=== PATIENT | male | born 1955 | race Caucasian/White ===

== ENCOUNTER 2021-01-15 00:39 | Outpatient (CLI) | payer MEDICAID, SELFPAY ==
--- NOTE | 2021-01-15 08:01 | DI.CT_ITS ---
Exam(s) CT ABDOMEN PELVIS W EXAM: CT ABDOMEN PELVIS W CLINICAL HISTORY: Pelvic pain,r10.2. TECHNIQUE: Imaging Protocol: Axial computed tomography images with coronal and sagittal reformatted images were created and reviewed CONTRAST MATERIAL: Intravenous: Omnipaque 100cc Oral: Yes COMPARISON: No exams were available for comparison FINDINGS: VISUALIZED LUNG BASES: No nodules nor pleural effusions evident. ABDOMEN: There is no ascites. LIVER: There are multiple small hypodensities in the right hepatic lobe, the largest of which appears to be a subcapsular cyst in the medial right hepatic lobe measuring approximately 1.7 x 1.3 cm. Sma ller findings have the appearance some small cysts although 1 of these which measures approximately 1 cm is not a simple cyst and may represent a hemangioma but difficult to assess accurately on this ty pe of similar run study. There is no dilatation of intrahepatic ducts. GALLBLADDER/BILIARY: No obvious gallbladder pathology. CBD is not dilated. PANCREAS: No evidence of pancreatic mass nor dilatation of the pancreatic duct. SPLEEN: Spleen is not enlarged. No obvious intrasplenic lesions. Splenic and portal veins are paten t. ADRENALS: There are no significant adrenal masses. KIDNEYS:There is a 1.5 x 1.4 cm benign cyst in the anterior cortex of the left kidney. No other foca l renal findings. No calculi. No hydronephrosis. No hydroureter. No obvious abnormality in the ur inary bladder. . ABDOMINAL AORTA: Abdominal aorta is not enlarged. LYMPH NODES:There are multiple slightly enlarged lymph nodes in the mesentery and there is also faint mesenteric streaking. There is no splenomegaly evident. No intrapelvic nor inguinal adenopathy kaylee dent. ABDOMINAL WALL: No evidence of significant anterior abdominal wall hernia. GI: There is no evidence of bowel obstruction, free air, nor abscess. PELVIS: GI: No evidence of appendicitis.Very redundant sigmoid. No obvious diverticulitis. LYMPH NODES: There is no intrapelvic nor inguinal adenopathy. REPRODUCTIVE: Mild enlargement of the prostate URINARY BLADDER: No calculi nor obvious masses evident OSSEOUS: No significant osseous lesions. Mild degenerative listhesis of L4 upon L5. IMPRESSION: 1. Multiple hypodensities are right hepatic lobe measuring up to 17 x 13 millimeters, most of which a ppear to be benign cysts. One of these is too dense to be a cyst and is probably a small hemangioma. Difficult to assess accurately on this type of study. 2. There are multiple small mesenteric lymph nodes seen. Ranging up to approximately 12 millimeters size. Also mild haziness in the mesentery. No splenomegaly. 3. Extremely redundant sigmoid which reaches the right upper quadrant of the abdomen. However, there is no evidence of significant sigmoid diverticular disease. RADIATION DOSE DELIVERED: 935.14mGy.cm Total DLP DATA REPOSITORY: All CT scans at this facility are submitted to the National Radiology Data Registry (NRDR) Dose Index Registry (DIR) with the [employer] (A[employer]). RADIATION OPTIMIZATION: All CT scans at this facility use at least one of these dose optimization te chniques: automated exposure control; mA and/or kV adjustment per patient size (includes targeted exa ms where dose is matched to clinical indication); or iterative reconstruction.
[2021-01-15] MEDS: Breeza Beverage 473 ML BTL PO ×2 (09:50→09:51)
[2021-01-15 10:13] LABS: ALT 25 U/L (16-63); Albumin 3.9 g/dL (3.4-5.0); BUN 12 mg/dL (7-18); Calcium 9.1 mg/dL (8.5-10.1); Chloride 106 mmol/L (98-107); Sodium 143 mmol/L (136-145)
[2021-01-15 10:22] LABS: AST 13 U/L (15-37); Alkaline Phosphatase 62 U/L (46-116); Bilirubin, Total 0.5 mg/dL (0.2-1.0); CREATININE 1.1 mg/dL (0.70-1.30); Glucose 104 mg/dL (74-106); Potassium 3.9 mmol/L (3.5-5.1); Total Protein 6.7 g/dL (6.4-8.2)
[2021-01-15] MEDS: Omnipaque 350 MG/ML 100 ML BTL IV (10:51)
[2021-01-15] MEDS: Normal Saline - Diluent 50 ML VIAL IV (10:52)
== END 2021-01-15 00:59 ==
PROVIDERS: PCP Nurse Practitioner Family; Visit Provider Nurse Practitioner Family
DX: K76.89 Other specified diseases of liver; I89.8 Other specified noninfective disorders of lymphatic vessels and lymph nodes; Q43.8 Other specified congenital malformations of intestine; I10 Essential (primary) hypertension
CPT/HCPCS: 80053; 74177; J3490

== ENCOUNTER 2021-01-15 11:19 | Emergency (ER) | payer MEDICAID, SELFPAY ==
[2021-01-15] VITALS (9 sets, daily range): BP systolic 143–159; BP diastolic 74–79; PULSE 60–70; RESP 18; TEMP 36.4–37.1; O2SAT 96–100
--- NOTE | 2021-01-15 11:31 | W.ED.GENAD ---
Discharge Plan Disposition Patient Disposition: HOME Condition: Improving Discharge Details Clinical Impression: Allergic reaction to contrast dye Primary Care Provider: Spencer Thomas ED Provider: Eliezer Mayfield Home Meds and New Rx's Prescriptions: Continued methylphenidate HCl 10 mg tablet extended release 10 mg PO QAM RF: 0 omeprazole 20 mg capsule,delayed release(DR/EC) 20 mg PO DAILY RF: 0 sildenafil [Viagra] 100 mg tablet 100 mg PO DAILY PRNRF: 0 ketoconazole 2 % shampoo 1 applic topical DAILY RF: 0 urea 40 % cream 1 applic topical BID RF: 0 Discharge Instructions Instructions: General Allergic Reaction (ED) Additional Instructions: May you may use Benadryl 25 to 50 mg every 4-6 hours if needed for persistent itchiness. Return or see nearest health care provider if you develop difficulty breathing, trouble swallowing, or any other acute concerns. You should consider yourself allergic to IV contrast dye. You may be able to have further contrast enhanced studies with premedication treatments. Medical Decision Making 65-year-old male who underwent contrast infused CT imaging for outpatient groin discomfort. Following the IV contrast she developed urticaria on his chest and abdomen. No difficulty breathing, no change to voice or drooling. Due to the acute reaction, patient was brought to the ER, IV access established, given antihistamines and parenteral steroids. Patient observed, improved. I do not feel that this is a severe allergic reaction, and he may likely be able to have further contrast dye with premedication. Do not feel he needs further steroids. He is stable for outpatient management at this time HPI General Mode of arrival: ambulatory. Date/Time Provider Initiated Documentation: 01/15/21 11:24. Limitations to Documentation: no limitations. Information obtained by: patient. History of Present Illness 65 year old M presents to the emergency department with the chief complaint of Allergic reaction to IV dye, described as moderate, Quality is described as dull and constant, and is localized to the chest and abdomen. Patient reports no radiation. Patient started experiencing this minute(s) and it has been constant. No relieving factors improve symptom(s), No exacerbating factors reported . Patient notes denies chest pain, cough, shortness of breath and syncope. Patient did receive the following treatments prior to arrival, none Related Data Home Medications Medication Instructions Recorded Confirmed ketoconazole 2 % shampoo 1 applic TOPICAL DAILY ml 11/15/20 01/15/21 methylphenidate HCl 10 mg 10 mg PO QAM 11/15/20 01/15/21 tablet,extended release omeprazole 20 mg capsule,delayed 20 mg PO DAILY 11/15/20 01/15/21 release sildenafil 100 mg tablet 100 mg PO DAILY PRN 11/15/20 01/08/21 urea 40 % topical cream 1 applic TOPICAL BID 11/15/20 01/15/21 Allergies Allergy/AdvReac Type Severity Reaction Status Date / Time No Known Allergies Allergy Verified 01/08/21 14:05 iv contrast AdvReac Intermediate Hives Uncoded 01/15/21 11:51 Review of Systems Narrative: 6 systems reviewed and otherwise negative. No difficulty with voice or swallowing. No shortness of breath. [facility] Medical History Actinic keratosis ADD (attention deficit disorder) Anxiety Benign prostatic hyperplasia with urinary obstruction Cervical radiculopathy Colon polyp Follicular acne of scalp GERD (gastroesophageal reflux disease) Hyperkeratosis Hypertension Lipoma Tinea pedis Family History Mother No problems noted. Father , 60's late Heart disease Sister Hypertension Sister Hyperlipidemia Brother Hypertension Maternal Grandfather , 70 No problems noted. Paternal Grandfather , 40's No problems noted. Maternal Grandmother , 70's No problems noted. Paternal Grandmother , 20's No problems noted. Social History (Updated 11/14/20 @ 09:15 by Joana Huddleston) Smoking/Tobacco Use Status: Never Second Hand Exposure: Yes Smoking risk assessment performed?: Yes Alcohol Intake: current Alcohol Intake frequency: a few times a week Alcohol type: beer, wine and hard liquor Drug use: Never Substance use type: does not use Caregiver/Support person: No Household members: other Details: mother Pets and animals: No Current gender identity: male What is your relationship status?: never How often do you talk on the phone with friends or family?: three or more times per week How often do you get together with friends or relatives?: three or more times per week Do you belong to any clubs or organized social groups?: no Panel score (0-1 are the most socially isolated patients): 1 What type of physical activity do you participate in: walking, weight lifting and other Details: hiking Duration: 45-60 minutes/day Frequency: 3-4 times per week Cayla/Denominational: No preference Special cayla needs: No Seatbelt use: always Helmet use: No Drive intox or ride w/intox train driver: No Do you feel safe at home: Yes Do you feel safe in your relationship?: Yes Exam Narrative Exam Narrative: GEN: awake, alert, oriented 3. Pleasant, well groomed, interactive. HEAD: Normocephalic, atraumatic ENT: Mucous membranes moist, oropharynx unremarkable, External ear exam unremarkable EYES: PERRL, EOMI NECK: Full ROM, no GONSALO, no menigismus CHEST/RESP: Nontender, clear to auscultation bilateral, no wheeze/rhonchi/rales CARDIOVASCULAR: RRR, no murmur, rub matt. 2+ Rad pulse bilateral ABDOMEN: Soft, nontender, no mass. +Bowel sounds EXT: Full ROM, no edema Skin: Raised, blanching, erythematous urticaria on chest and abdomen. Neuro: Grossly normal neurologic exam, conversant, interactive. Psych: Speech fluent, thoughts congruent, affect normal
[2021-01-15] MEDS: Loratidine 10 MG TAB PO (11:34)
[2021-01-15] MEDS: methylPREDNISolone SUCC 125 MG VIAL IVP (11:34)
[2021-01-15] MEDS: diphenhydrAMINE 50 MG/ML VIAL 25 MG IVP (11:35)
[2021-01-15] MEDS: Normal Saline 1,000 ML 1000 ML IV (11:47)
== END 2021-01-15 14:09 | disposition home or self-care (01) ==
LOC: ER 12:42
PROVIDERS: Emergency Provider Emergency Medicine; PCP Nurse Practitioner Family
DX: L50.9 Urticaria, unspecified (principal); T50.8X5A Adverse effect of diagnostic agents, initial encounter
CPT/HCPCS: 96361; 96374; 96375; 99284; J1200; J2930

== ENCOUNTER 2022-04-22 10:45 | Outpatient (REF) | payer MEDICAID, SELFPAY ==
[2022-04-22 19:06] LABS: Anion Gap 5.6 mmol/L (3-11); BUN 18 mg/dL (7-18); CO2 29.4 mmol/L (21.0-32.0); CREATININE 1.3 mg/dL (0.70-1.30); Calculated LDL 107 mg/dL (<100); Chloride 105 mmol/L (98-107); Cholesterol 178 mg/dL (<200); Estimated GFR 60.96 (mL/min/1.73m2); Glucose 91 mg/dL (74-106); HDL Cholesterol 59 mg/dL (40-60); Potassium 4.1 mmol/L (3.5-5.1); Sodium 140 mmol/L (136-145); Triglyceride 62 mg/dL (<150)
[2022-04-26 10:04] LABS: Hepatitis C Ab w Rflx HCV PCR Negative (Negative)
== END 2022-04-22 10:46 | disposition home or self-care (01) ==
LOC: NCHCN 10:45
PROVIDERS: Visit Provider Nurse Practitioner Family
DX: Z13.220 Encounter for screening for lipoid disorders (principal); Z11.59 Encounter for screening for other viral diseases
CPT/HCPCS: 80048; 80061; 86803

== ENCOUNTER 2022-08-25 18:25 | Outpatient (REF) | payer MEDICARE, MEDICAID, SELFPAY ==
[2022-08-25 18:48] LABS: TSH 0.59 uIU/mL (0.36-3.74)
== END 2022-08-25 18:26 | disposition home or self-care (01) ==
LOC: NCHCN 18:25
PROVIDERS: Visit Provider Nurse Practitioner Family
DX: K59.00 Constipation, unspecified (principal)
CPT/HCPCS: 84443

== ENCOUNTER 2022-09-07 09:59 | Outpatient (REF) | payer MEDICARE, MEDICAID, SELFPAY ==
[2022-09-07 19:26] LABS: Anion Gap 7.5 mmol/L (3-11); BUN 15 mg/dL (7-18); CO2 28.5 mmol/L (21.0-32.0); CREATININE 1.4 mg/dL (0.70-1.30); Chloride 109 mmol/L (98-107); Estimated GFR 55.78 (mL/min/1.73m2); Glucose 130 mg/dL (74-106); Potassium 4.3 mmol/L (3.5-5.1); Sodium 145 mmol/L (136-145)
== END 2022-09-07 10:00 | disposition home or self-care (01) ==
LOC: NCHCN 09:59
PROVIDERS: PCP Nurse Practitioner Family; Visit Provider Nurse Practitioner Family
DX: I10 Essential (primary) hypertension (principal)
CPT/HCPCS: 80048

== ENCOUNTER 2022-09-13 14:00 | Outpatient (REF) | payer MEDICARE, MEDICAID, SELFPAY ==
[2022-09-14 09:46] LABS: Anion Gap 5.6 mmol/L (3-11); BUN 15 mg/dL (7-18); CO2 28.4 mmol/L (21.0-32.0); CREATININE 1.3 mg/dL (0.70-1.30); Calcium 9.2 mg/dL (8.5-10.1); Chloride 108 mmol/L (98-107); Estimated GFR 60.96 (mL/min/1.73m2); Glucose 100 mg/dL (74-106); Potassium 4.3 mmol/L (3.5-5.1); Sodium 142 mmol/L (136-145)
[2022-09-14 10:35] LABS: Hemoglobin A1C 5.7 % (<5.7)
== END 2022-09-13 14:01 | disposition home or self-care (01) ==
LOC: NCHCN 14:00
PROVIDERS: PCP Nurse Practitioner Family; Visit Provider Nurse Practitioner Family
DX: R73.9 Hyperglycemia, unspecified (principal); R94.4 Abnormal results of kidney function studies; I10 Essential (primary) hypertension
CPT/HCPCS: 80048; 83036

== ENCOUNTER 2025-02-22 15:39 | Outpatient (REF) | payer MEDICARE, SELFPAY ==
[2025-02-22 19:35] LABS: Anion Gap 7.1 mmol/L (3-11); BUN 20 mg/dL (7-18); CO2 28.9 mmol/L (21.0-32.0); Calcium 9.1 mg/dL (8.5-10.1); Calculated LDL 104 mg/dL (<100); Chloride 106 mmol/L (98-107); Cholesterol 178 mg/dL (<200); Estimated GFR 65.87 (mL/min/1.73m2); Glucose 91 mg/dL (74-106); HDL Cholesterol 59 mg/dL (>or=40); Potassium 4.1 mmol/L (3.5-5.1); Sodium 142 mmol/L (136-145); TSH 0.89 uIU/mL (0.36-3.74); Triglyceride 77 mg/dL (<150)
== END 2025-02-22 15:40 | disposition home or self-care (01) ==
LOC: NCHCN 15:39
PROVIDERS: PCP Nurse Practitioner Family; Visit Provider Internal Medicine
DX: I10 Essential (primary) hypertension (principal)
CPT/HCPCS: 80048; 80061; 84443